=== PATIENT | female | born 1980 | race Caucasian/White ===

== ENCOUNTER 2023-10-16 09:15 | Outpatient (OUT) | payer BC, OTHER, SELFPAY ==
[2023-10-16 09:58] LABS: Basophils Percent Auto 0.5 % (0.2-2.0); Eosinophils Absolute Auto 0.1 10^3/uL (0.0-0.7); Eosinophils Percent Auto 0.8 % (0.9-7.0); Hematocrit 36.5 % (36.0-48.0); Hemoglobin 11.7 g/dL (12.0-16.0); Immature Granulocytes Abs Auto 0.02 10^3/uL (0.00-0.03); Immature Granulocytes Pct Auto 0.3 % (0.0-0.5); Lymphocytes Absolute Auto 1.8 10^3/uL (1.2-3.8); Lymphocytes Percent Auto 22.8 % (20.5-60.0); Mean Corpuscular HGB Conc 32.1 g/dL (29.9-35.2); Mean Corpuscular Hemoglobin 26.1 pg (26.7-34.0); Mean Corpuscular Volume 81.5 fL (81.0-99.0); Mean Platelet Volume 10.9 fL (9.5-13.5); Monocytes Absolute Auto 0.5 10^3/uL (0.3-0.8); Neutrophils Absolute Auto 5.3 10^3/uL (1.4-6.5); Neutrophils Percent Auto 68.6 % (43.0-75.0); Platelet Count 253 10^3/uL (150-450); Red Blood Count 4.48 10^6/uL (4.20-5.40); Red Cell Distribution Width 13.6 % (11.0-15.0); White Blood Count 7.7 10^3/uL (4.0-11.0)
[2023-10-16 11:22] LABS: Alanine Aminotransferase 27 U/L (14-59); Albumin Globulin Ratio 1.1; Albumin Level 3.9 g/dL (3.4-5.0); Alkaline Phosphatase 50 U/L (46-116); Anion Gap 11.7; Aspartate Amino Transferase 18 U/L (15-37); Bilirubin Total 0.5 mg/dL (0.2-1.0); Calcium 8.9 mg/dL (8.5-10.1); Carbon Dioxide 27.8 mmol/L (21.0-32.0); Chloride 102 mmol/L (98-107); Estimated GFR (African America >60 (>=60); Estimated GFR (Non-African Ame >60 (>=60); Globulin 3.4 g/dL; Glucose 65 mg/dL (74-106); Potassium 3.5 mmol/L (3.5-5.1); Sodium 138 mmol/L (136-145); Total Protein 7.3 g/dL (6.4-8.2)
== END 2023-10-16 09:16 | disposition home or self-care (01) ==
DX: Z79.899 Other long term (current) drug therapy (principal)
CPT/HCPCS: 36415; 80053; 82784; 82785; 85025

== ENCOUNTER 2025-04-19 08:49 | Outpatient (OUT) | payer BC, OTHER, SELFPAY ==
--- OUTSIDE RECORDS SUMMARY | 2025-04-19 08:55 | XMS_ITS | Patient Health Record ---
Author Organization [facility] Address [address] [place], [place] [address] Care Team Providers Care Vision Therapist Name Role Phone Sujit Page Unavailable [phone] Unknown, Unknown Unavailable Unavailable Carmelita Johns Unavailable [phone] Carley Myers Unavailable [phone] Allergies Allergen (clinical drug ingredient) Drug/Non Drug Allergy documented on EMR Reaction Allergy Type Onset Date Status amoxicillin Amoxicillin rash Drug Allergy Active Results Component Value Reference Range Notes -CBC (INCLUDES DIFF/PLT) Reviewed date:10/05/2024 12:58:28 PM Interpretation:Stable Performing Lab: Notes/Report: Stable -COMPREHENSIVE METABOLIC ARENAS EL Reviewed date:10/04/2024 02:53:57 PM Interpretation: Performing Lab: Notes/Report: -IGG Reviewed date:10/04/2024 02:54:07 PM Interpretation: Performing Lab: Notes/Report: Reason For Referral No Information Medications Medication SIG (Take, Route, Frequency, Duration) Notes Start Date End Date Status Ocrevus 300 mg/10 ml Two Vials IV As Directed 02/07/2017ActiveVitamin D 1000 UNIT1 tablet Orally Once a dayActive Social History Tobacco Use: Social History Observation Description Date Details (start date - stop date) Never Smoker NA - NA Tobacco Use/Smoking Question Answer Notes Are you a nonsmoker AUDIT-C (Standard) Question Answer Notes Did you have a drink containing alcohol in the p ast year? No Zoucer6JpfiwupwkhggprWknasajb Problems Problem Type SNOMED Code ICD Code Onset Dates Problem Status W/U Status Risk Notes Problem Information temporarily unavailable Multi ple sclerosis (G35) ActiveconfirmedProblemInformation temporarily unavailableAtaxic gait (R26.0) ActiveconfirmedProblemInformation temporarily unavailableOther disturbances of skin sensation (R20.8)ActiveconfirmedProblemInformation temporarily unavailable Ataxia, unspecified (R27.0)ActiveconfirmedProblemInformation temporarily unavailableMultiple sclerosis (G35)ActiveconfirmedProblemInformation temporarily unavailableOther fatigue (R53.83)ActiveconfirmedProblemInformation temporarily unavailableUnspecified optic neuritis (H46.9)ActiveconfirmedProblemInformation temporarily unavailableVitamin D deficiency (E55.9)ActiveconfirmedProblem Information temporarily unavailableEncounter for long-term (current) use of medications (Z79.899)ActiveconfirmedProblemInformation temporarily unavailable Chronic fatigue (R53.82)Activeconfirmed Vital Signs Heart Rate 51 /min 12/31/2024 1032 BP-119/72 HR-68 RR-14 T-97.9 Ocrevus infusion initiated at 100ml/hr 1047 BP-111/72 HR-55 RR-14 T-97.9 Ocrevus infusion increased to 200ml/hr 1102 BP-107/67 HR-53 RR-14 T-98.1 Ocrevus infusion increased to 250ml/hr 1132 Pt in office visit with Dr. Page without s/s of distress. Ocrevus infusion increased to 300ml/hr 1202 BP-108/68 HR-58 RR-14 T-97.9 Ocrevus infusion remains at 300ml/hr 1232 BP-111/78 HR-70 RR-14 T-97.9 Ocrevus infusion remains at 300ml/hr 1245: Infusion complete pt tolerated well 1345: Pt discharged home BP-122/81 P70 R14 Temperature 98.1 degrees Fahrenheit 12/31/2024 1032 BP-119/72 HR-68 RR-14 T-97.9 Ocrevus infusion initiated at 100ml/hr 1047 BP-111/72 HR-55 RR-14 T-97.9 Ocrevus infusion increased to 200ml/hr 1102 BP-107/67 HR-53 RR-14 T-98.1 Ocrevus infusion increased to 250ml/hr 1132 Pt in office visit with Dr. Page without s/s of distress. Ocrevus infusion increased to 300ml/hr 1202 BP-108/68 HR-58 RR-14 T-97.9 Ocrevus infusion remains at 300ml/hr 1232 BP-111/78 HR-70 RR-14 T-97.9 Ocrevus infusion remains at 300ml/hr 1245: Infusion complete pt tolerated well 1345: Pt discharged home BP-122/81 P70 R14 Respiratory Rate 14 /min 12/31/2024 1032 BP-119/72 HR-68 RR-14 T-97.9 Ocrevus infusion initiated at 100ml/hr 1047 BP-111/72 HR-55 RR-14 T-97.9 Ocrevus infusion increased to 200ml/hr 1102 BP-107/67 HR-53 RR-14 T-98.1 Ocrevus infusion increased to 250ml/hr 1132 Pt in office visit with Dr. Page without s/s of distress. Ocrevus infusion increased to 300ml/hr 1202 BP-108/68 HR-58 RR-14 T-97.9 Ocrevus infusion remains at 300ml/hr 1232 BP-111/78 HR-70 RR-14 T-97.9 Ocrevus infusion remains at 300ml/hr 1245: Infusion complete pt tolerated well 1345: Pt discharged home BP-122/81 P70 R14 Blood pressure diastolic 81 mm Hg 12/31/2024 1032 BP-119/72 HR-68 RR-14 T-97.9 Ocrevus infusion initiated at 100ml/hr 1047 BP-111/72 HR-55 RR-14 T-97.9 Ocrevus infusion increased to 200ml/hr 1102 BP-107/67 HR-53 RR-14 T-98.1 Ocrevus infusion increased to 250ml/hr 1132 Pt in office visit with Dr. Page without s/s of distress. Ocrevus infusion increased to 300ml/hr 1202 BP-108/68 HR-58 RR-14 T-97.9 Ocrevus infusion remains at 300ml/hr 1232 BP-111/78 HR-70 RR-14 T-97.9 Ocrevus infusion remains at 300ml/hr 1245: Infusion complete pt tolerated well 1345: Pt discharged home BP-122/81 P70 R14 Height 60 in 12/31/2024 Blood pressure mm Hg12/31/2024 1032 BP-119/72 HR-68 RR-14 T-97.9 Ocrevus infusion initiated at 100ml/hr 1047 BP-111/72 HR-55 RR-14 T-97.9 Ocrevus infusion increased to 200ml/hr 1102 BP-107/67 HR-53 RR-14 T-98.1 Ocrevus infusion increased to 250ml/hr 1132 Pt in office visit with Dr. Page without s/s of distress. Ocrevus infusion increased to 300ml/hr 1202 BP-108/68 HR-58 RR-14 T-97.9 Ocrevus infusion remains at 300ml/hr 1232 BP-111/78 HR-70 RR-14 T-97.9 Ocrevus infusion remains at 300ml/hr 1245: Infusion complete pt tolerated well 1345: Pt discharged home BP-122/81 P70 R14 Qgbqrl306.6 lbs5BMI22.96 kg/m207/02/2024 Encounters Encounter Location Date Provider Diagnosis [facility] Infusion [address] [place], [place] [id number] 07/02/2024 Sujit Carrabine Multiple sclerosis G35 and Multiple sclerosis G35 [facility] [address] [place], [place] [id number] 07/02/2024 Carley Myers Multiple sclerosis G35 [facility] Infusion [address] [place], [place] [id number] 12/31/2024 Sujit Carrabine Multiple sclerosis G35 and Multiple sclerosis G35 [facility] [address] [place], [place] [id number] 12/31/2024 Sujit Carrabine Multiple sclerosis G35 ; Unspecified optic neuritis H46.9 and Ataxia, unspecified R27.0 [facility] Infusion [address] [place], [place] [id number] 07/02/2024 Carmelita Junk Multiple sclerosis G35 and Encounter for long-term (current) drug use Z79.899 [facility] Infusion [address] [place], [place] [id number] 12/30/2024 Carmelita Johns Other care home (current) drug therapy Z79.899 ; Multiple sclerosis G35 and Encounter for screening for diseases of the blood and blood-forming organs and certain disorders involving the immune mechanism Z13.0 Assessments Encounter Date Diagnosis (ICD Code) Assessment Notes Treatment Notes Treatment Clinical Notes Section Notes 07/02/2024 Multiple sclerosis (ICD-10 - G35 ) This is a 43-year-old female principal neurologic diagnosis of multiple sclerosis in 2009. She has been on Ocrevus since 2018 and tolerated it well. She remains stable on it today. Her neurological exam remains unchanged. Will plan to continue with her infusions. She has an order for a CBC with differential, CMP, and IgG. She knows to have this done in 2 months to monitor for drug safety. We reviewed her most recent blood work all stable, it did show her hemoglobin was very slightly decreased at 11.6. We will continue to monitor this, and she is going to discuss it with her PCP as well. Sinceher last visit she did have MRI imaging repeated, this was not compared to previous study but did not show any enhancing lesions. We will monitor her clinically for now and consider repeating as needed.We talked about the importance of living a healthy lifestyle, good sleep, healthy diet, low stress, gentle exercise. She has a great job taking care of herself now encouraged her to keep it up. Otherwise, there is nothing else I would change or add. The patient verbalizes understanding and happiness with the treatment plan. We will call to review results once received. We will see her back in 6months, sooner if needed. I asked her to call with any questions or concerns, or if any new acute neurologic symptoms develop in the prztnpnu24/12/2025Multiple sclerosis (ICD-10 - G35) This is an extremely kind 44-year-old female with a principal neurologic diagnosis of multiple sclerosis, presenting to the clinic in 2018 with marked aggressive MS, multiple, greater than 20, MS lesions in her brain and spinal cord that were actively enhancing with contrast administration consistent with active MS, with associated difficulties at that time with gait secondary to coordination with right lower extremity weakness balance, similar findings found on exam at that time of weakness dysmetria, a right HUMBERTO on cranial nerve examination. Since 2018 she has been on the efficacious every 6-month IV monoclonal antibody Ocrevus to treat her multiple sclerosis, this, and every 6- month monoclonal infusion targeting the CD20 lymphocyte, it does not touch her bone marrow, she makes new DQ93msyjtwvzghm, that do their job regarding preventing and fighting infections etc., but do not remember how to cause MS , as this method of action. She denies trigger infections. At today's visit, she does remarkably well on neurologic testing, she remains with some trace dysmetria with yrbm-tn-mfoz testing on tabletop testing, gait normal, otherwise strength balance overall function intact. She notes marked happiness in her life, she is doing a great job, she works hard on her health. I told her the same. We discussed several things she wanted to talk about, to her satisfaction, again she notes happiness with the above, we will see her back in 6 months, thanks for letting us see your kind patient 12/31/2024Unspecified optic neuritis (ICD-10 - H46.9) This is an extremely kind 44-year-old female with a principal neurologic diagnosis of multiple sclerosis, presenting to the clinic in 2018 with marked aggressive MS, multiple, greater than 20, MS lesions in her brain and spinal cord that were actively enhancing with contrast administration consistent with active MS, with associated difficulties at that time with gait secondary to coordination with right lower extremity weakness balance, similar findings found on exam at that time of weakness dysmetria, a right HUMBERTO on cranial nerve examination. Since 2018 she has been on the efficacious every 6-month IV monoclonal antibody Ocrevus to treat her multiple sclerosis, this, and every 6- month monoclonal infusion targeting the CD20 lymphocyte, it does not touch her bone marrow, she makes new NT39dbrqgxbzqxw, that do their job regarding preventing and fighting infections etc., but do not remember how to cause MS , as this method of action. She denies trigger infections. At today's visit, she does remarkably well on neurologic testing, she remains with some trace dysmetria with okuw-sp-mrtl testing on tabletop testing, gait normal, otherwise strength balance overall function intact. She notes marked happiness in her life, she is doing a great job, she works hard on her health. I told her the same. We discussed several things she wanted to talk about, to her satisfaction, again she notes happiness with the above, we will see her back in 6 months, thanks for letting us see your kind patient 12/30/2024Other care home (current) drug therapy (ICD-10 - Z79.899)12/31/2024 Multiple sclerosis (ICD-10 - G35)07/02/2024Multiple sclerosis (ICD-10 - G35) 07/02/2024Multiple sclerosis (ICD-10 - G35)07/02/2024Encounter for long-term (current) drug use (ICD-10 - Z79.899)07/02/2024Multiple sclerosis (ICD-10 - G35) 12/31/2024Multiple sclerosis (ICD-10 - G35)12/31/2024taxia, unspecified (ICD-10 - R27.0) This is an extremely kind 44-year-old female with a principal neurologic diagnosis of multiple sclerosis, presenting to the clinic in 2018 with marked aggressive MS, multiple, greater than 20, MS lesions in her brain and spinal cord that were actively enhancing with contrast administration consistent with active MS, with associated difficulties at that time with gait secondary to coordination with right lower extremity weakness balance, similar findings found on exam at that time of weakness dysmetria, a right HUMBERTO on cranial nerve examination. Since 2018 she has been on the efficacious every 6-month IV monoclonal antibody Ocrevus to treat her multiple sclerosis, this, and every 6- month monoclonal infusion targeting the CD20 lymphocyte, it does not touch her bone marrow, she makes new TP44aopdqsjyxbj, that do their job regarding preventing and fighting infections etc., but do not remember how to cause MS , as this method of action. She denies trigger infections. At today's visit, she does remarkably well on neurologic testing, she remains with some trace dysmetria with lrcd-lb-pyyp testing on tabletop testing, gait normal, otherwise strength balance overall function intact. She notes marked happiness in her life, she is doing a great job, she works hard on her health. I told her the same. We discussed several things she wanted to talk about, to her satisfaction, again she notes happiness with the above, we will see her back in 6 months, thanks for letting us see your kind patient 12/30/2024Multiple sclerosis (ICD-10 - G35)12/30/2024Encounter for screening for diseases of the blood and blood-forming organs and certain disorders involving the immune mechanism (ICD-10 - Z13.0)12/31/2024OtherOARRS report Reviewed This is an extremely kind 44-year-old female with a principal neurologic diagnosis of multiple sclerosis, presenting to the clinic in 2018 with marked aggressive MS, multiple, greater than 20, MS lesions in her brain and spinal cord that were actively enhancing with contrast administration consistent with active MS, with associated difficulties at that time with gait secondary to coordination with right lower extremity weakness balance, similar findings found on exam at that time of weakness dysmetria, a right HUMBERTO on cranial nerve examination. Since 2018 she has been on the efficacious every 6-month IV monoclonal antibody Ocrevus to treat her multiple sclerosis, this, and every 6- month monoclonal infusion targeting the CD20 lymphocyte, it does not touch her bone marrow, she makes new ZM47vfzioflpztj, that do their job regarding preventing and fighting infections etc., but do not remember how to cause MS , as this method of action. She denies trigger infections. At today's visit, she does remarkably well on neurologic testing, she remains with some trace dysmetria with wnym-pk-aols testing on tabletop testing, gait normal, otherwise strength balance overall function intact. She notes marked happiness in her life, she is doing a great job, she works hard on her health. I told her the same. We discussed several things she wanted to talk about, to her satisfaction, again she notes happiness with the above, we will see her back in 6 months, thanks for letting us see your kind patient Plan Of Treatment Pending Test Test Name Order Date Electrocardiogram (ECG) 12/25/2016 - Immunoglobulins A/G/M, Qn, Ser 021 - Immunoglobulins A/G/M, Qn, Ser 021 - Immunoglobulins A/G/M, Qn, Ser 021 - Immunoglobulins A/G/M, Qn, Ser 023 Hepatic Function Panel (7) 02/07/2017 -CBC/DIFF 12/25/2016 -COMP METAB 12/25/2016 -TB Quantiferon 02/07/2017 -Comp Metabolic Panel 03/06/2018 -Comp Metabolic Panel 03/04/2019 -Comp Metabolic Panel 08/20/2019 -Comp Metabolic Panel 07/03/2020 -Comp Metabolic Panel 02/04/2020 -Comp Metabolic Panel 06/21/2022 -Comp Metabolic Panel 01/12/2021 -Comp Metabolic Panel 07/28/2020 -Comp Metabolic Panel 05/30/2017 -CBC w/ diff 05/30/2017 -CBC w/ diff 01/12/2021 -CBC w/ diff 06/21/2022 -CBC w/ diff 07/03/2020 -CBC w/ diff 07/28/2020 -CBC w/ diff 01/11/2020 -CBC w/ diff 02/04/2020 -CBC w/ diff 03/06/2018 -CBC w/ diff 03/04/2019 -CBC w/ diff 08/20/2019 Varicella Zoster,Ab IgG&IgM 12/25/2016 -COMPREHENSIVE METABOLIC PANEL 4 -CBC (INCLUDES DIFF/PLT) 06/19/2023 -IMMUNOGLOBULINS PANEL, SERUM 06/19/2023 Future Test Test Name Order Date -COMPREHENSIVE METABOLIC PANEL 5 -CBC (INCLUDES DIFF/PLT) 03/02/2025 -IGG 03/02/2025 Next Appt Details Provider Name:Sujit mcwilliams, 07/01/2025 09:45:00 AM, [address], [place], [place], [id number], Provider Name:Carley Myers, 07/01/2025 10:45:00 AM, [address], [place], [place], [id number], Insurance Providers Payer Name Payer Address Payer Phone Subscriber Number Group Number Insured Name Patient Relationship to Insured Coverage Start Date Coverage End Date [facility] [address] [place] [address] [id number] Isabel Allen Self - patient is the insured [facility] [address] [address] [place] [phone] [id number], NicoleSelf - patient is the insuredOCREVUS COPAY [id number] [place] [address] [address] [place], [place] [id number] Ethel Allenelf - patient is the insured Medications Administered Medication Instructions Date of Administration Dosage Notes OCREVUS 03/06/2018300exp 09/2018 lot [id number]/16/9559854 mg Exp 09/2018 lot [id number] RLWGWYP7709/15/2018300 iaNVCMPUL51/28/6195698 meTEEYNBI62/14/0877422 mgOCREVUS 03/04/2019300 coTEJBBQY85/01/3094244 ueCMMSBAV28/01/3782173 vnBDTKYXC56/16/2020 300 htIGEYCXM49/16/6219769 yzFZFMHYA191300 jdGSTDQVZ351300 mg RMCPKYO90/24/1322018 jyFYDEHVA71/24/5845707 suTIZWGXS82/18/7546597 mgOCREVUS 00 qsMSNYUPV89/16/5749583 weCYEQGKI91/16/2110213 jqQDFAASR42/03/2023 300 loACOYHGR94/03/7662607 uoDZFHGVN78/01/5621371 zhYCEAZTL70/01/1475831 mg HSSZYBF794300 fhNKTADMC18/01/1997225 yzLraruyu10/30/8825302 mgOcrevus 00 czYaxwmlp75/14/4777501 hoOarnofi56/14/6865544 huXuiubth59/12/2025 300 djQojqwak380 mg Medical (General) History Medical History History ICD Code MS Surgical History Surgery Date(Month/Year)
--- OUTSIDE RECORDS SUMMARY | 2025-04-19 08:55 | XMS_ITS | Clinical Summary ---
Author Organization [facility] Address [address] [place] [address] Care Team Providers Care Customer Loyalty Representative Name Role Phone Moris Hollis Primary Care Provider [phone] Allergies Active AllergyReactionsCriticalityNoted DateCommentsAmoxicillinRashHigh 09/01/2007 Medications MedicationSigDispense QuantityRefillsLast FilledStart DateEnd DateStatus PNV WITH CA,NO.72/IRON/FA ( VITAMINS LOW IRON ORAL) Take 1 tablet by mouth once daily.Active acetaminophen (TYLENOL) 325 mg tablet Take 2 tablets by mouth every 6 hours as needed. 40 tablet ctive IRON,CARBONYL/VIT C/VIT B12/FA (IRON 100 PLUS ORAL) Take by mouth.Active CALCIUM CARBONATE/VITAMIN D3 (VITAMIN D-3 ORAL) Take by mouth.Active predniSONE (DELTASONE) 20 mg tablet Indications:Multiple sclerosis3 TABS DAILY FOR 4 DAYS, THEN 2 TABS DAILY FOR 4 DAYS, THEN 1 TAB DAILY FOR 4 DAYS 25 tablet 11/11/2016Active famotidine (PEPCID) 20 mg tablet Indications:Multiple sclerosisTake 1 tablet by mouth daily at bedtime. 30 tablet 11/11/2016Active Active Problems Patient Care Coordination No te Formatting of this note migh t be different from the original. Care Plan: Triplody on amnio Plan: cont care with Dr. Hollis and Dr. Fonseca (to see Dr. Hollis weekly for pre-eclampsia checks, to monitor BP daily at home Consults: Specialty: peds cardiology Dr. Valentine See consult note dated 4/30 Delivery Plan: Date: tbd, at Location: [place] Mode of delivery: Expectant Delivery provider:Laborist with MFM assist as needed floor: routine [place] Plan: tbd Radha Douglas RN ProblemNoted DateDiagnosed DateMultiple ofnoifoak42/09/2017Fetal demise, greater than 22 weeks, syaqdyvpgy42/29/2015Triploidy zfwggota28/29/2015Oligohydramnios xnowkztozp39/29/2015IUGR, yvdaguqlb31/29/2015 Resolved Problems ProblemNoted DateDiagnosed DateResolved DateMS (multiple sclerosis)01/28/2010 09/16/2014 Family History Medical HistoryRelationCommentsThyroidMaternal GrandfatherDiabetesMaternal GrandmotherRelationStatusCommentsMaternal GrandfatherMaternal Grandmother Social History Tobacco UseTypesPacks/DayYears UsedDateSmoking Tobacco: Never Tobacco Cessation:Counseling Given: Yes Alcohol UseStandard Drinks/WeekCommentsNo0 (1 standard drink = 0.6 oz pure alcohol)CommentsNoSex and Gender InformationValueDate RecordedSex Assigned at BirthNot on fileLegal MtdFvqion99/02/2012 8:13 AM ESTGender Identity Not on fileSexual OrientationNot on file Last Filed Vital Signs Vital SignReadingTime TakenCommentsBlood Wbuxuvtb410/77006/27/2016 8:29 AM EST Dysbk189906/27/2016 8:29 AM TUPMzlpzybuaol57.6 ??C (97.9 ??F)06/27/2016 8:29 AM ESTRespiratory Hsfz237006/27/2016 8:29 AM ESTOxygen Rvzactvhqj214%06/27/2016 8:29 AM ESTInhaled Oxygen Concentration--Xbkgpj77.1 kg (117 lb)06/27/2016 8:29 AM EST Cfyvhw623.4 cm (5')05/23/2016 9:34 AM ESTBody Mass Index22.85005/23/2016 9:34 AM EST Plan of Treatment Health MaintenanceDue DateLast DoneCommentsAnxiety Yudqheihv74/19/2001Depression Krvuetwqd08/19/2001HIV Uozhqkzlq65/19/2001Hepatitis C Kamqzbzjm75/19/2001 DTaP,Tdap,Td Vaccine (1 - Tdap)05/19/2002Hepatitis B Vaccine (1 of 3 - 19+ 3- dose series)2001Cervical Cancer Ipmthhpnz84/19/2004HPV Vaccine (1 - 3-dose SCDM series)2009Mammogram Dfvqhynio11/19/2023Covid-19 Vaccine ( - 2024- season)2024Influenza Vaccine (#1)2024 Insurance * Guarantor: Megan Allen TypeRelation to PatientDate of BirthPhone Billing AddressSelf [id number] 1980 NA (Work) [address] [place] [address] Care Teams Team MemberRelationshipSpecialtyStart DateEnd Date Moris Hollis [address] [place] [phone] [facility] - GeneralObstetraur[facility]08/09/14
[2025-04-19 09:13] LABS: Hematocrit 37.9 % (36.0-48.0); Hemoglobin 12.2 g/dL (12.0-16.0); Immature Granulocytes Abs Auto 0.02 10^3/uL (0.00-0.03); Immature Granulocytes Pct Auto 0.3 % (0.0-0.5); Lymphocytes Absolute Auto 1.8 10^3/uL (1.2-3.8); Mean Corpuscular HGB Conc 32.2 g/dL (29.9-35.2); Mean Corpuscular Hemoglobin 26.0 pg (26.7-34.0); Mean Corpuscular Volume 80.6 fL (81.0-99.0); Platelet Count 264 10^3/uL (150-450); Red Blood Count 4.70 10^6/uL (4.20-5.40); White Blood Count 7.6 10^3/uL (4.0-11.0)
[2025-04-19 09:29] LABS: Alanine Aminotransferase 38 U/L (14-59); Albumin Globulin Ratio 1.2; Albumin Level 4.1 g/dL (3.4-5.0); Alkaline Phosphatase 54 U/L (46-116); Anion Gap 12.0; Aspartate Amino Transferase 22 U/L (15-37); Blood Urea Nitrogen 16.0 mg/dL (7.0-18.0); Calcium 9.0 mg/dL (8.5-10.1); Carbon Dioxide 27.3 mmol/L (21.0-32.0); Chloride 102 mmol/L (98-107); Estimated GFR (African America >60 (>=60 mL/min/1.73m^2); Estimated GFR (Non-African Ame >60 (>=60 mL/min/1.73m^2); Globulin 3.5 g/dL; Glucose 91 mg/dL (74-106); Potassium 4.3 mmol/L (3.5-5.1); Sodium 137 mmol/L (136-145); Total Protein 7.6 g/dL (6.4-8.2)
[2025-04-20 07:07] LABS: Immunoglobulin G, Qn 922 mg/dL (586-1602)
== END 2025-04-19 08:50 | disposition home or self-care (01) ==
LOC: LAB 08:52
PROVIDERS: Visit Provider Nurse Practitioner Gerontology
DX: Z79.899 Other long term (current) drug therapy (principal); Z13.0 Encounter for screening for diseases of the blood and blood-forming organs and certain disorders involving the immune mechanism
CPT/HCPCS: 36415; 80053; 82784; 85025